=== PATIENT | female | born 1930 | race Caucasian/White ===

== ENCOUNTER 2016-10-26 04:26 | Day surgery (SDCO) | payer OTHER ==
[~2016-10-26 04:26] MED LIST: ASPIRIN CHEWABL81 MG PO; CALCIUM CITRAT1 EAC8 PO; CETIRIZINE HCL10 MG PO; FEOSOL325 MG PO; LAXATIVE OF CHOICE; MIRALAX17 GM PO; OCUVITE SOFTGE1 EACH PO; PERCOCET 5/3251 TAB PO; PRILOSEC20 MG PO; STOOL SOFTENER PO; SYMBICORT 80-10.2 GM INH; SYNTHROID50 MCG PO; VITAMIN D31000 UNI1 PO; [UNRECOGNIZED DRUG - OTHER]
[2016-10-26 05:51] LABS: BASOPHIL 0.4 % (0-2); EOSINOPHIL 1.5 % (0-7); HCT 40.3 % (37.0-47.0); HGB 13.5 g/dl (12.5-16.0); LYMPHOCYTE 15.7 % (15-48); MCHC 33.5 g/dL (32.0-36.0); MCV 92.6 fL (78.0-100.0); MONOCYTE 11.4 % (0-12); MPV 11.3 fL (6.0-9.5); PLT 273 K/uL (150-400); RBC 4.35 M/uL (4.20-5.40); RDW 14.4 % (11.5-14.0); WBC 11.6 K/uL (4.0-10.5)
[2016-10-26 06:04] LABS: LACTIC ACID 1.1 mmol/L (0.5-2.2)
[2016-10-26 06:07] LABS: ALBUMIN 3.2 g/dL (3.4-4.8); BILIRUBIN - TOTAL 0.3 mg/dL (0.1-1.0); CREATININE 0.9 mg/dL (0.5-1.0); GLOBULIN (CALCULATION) 3.1 g/dL (2.2-4.2); POTASSIUM 3.8 mmol/L (3.5-5.1); TOTAL PROTEIN 6.3 g/dL (6.4-8.3)
[2016-10-26 06:13] LABS: BILIRUBIN NEGATIVE (NEGATIVE); BLOOD NEGATIVE Ery/uL (NEGATIVE); CLARITY CLEAR (CLEAR); COLOR YELLOW (YELLOW); GLUCOSE (U) NORMAL (NORMAL); KETONE (U) NEGATIVE (NEGATIVE); LEUKOCYTES TRACE Leu/uL (NEGATIVE); NITRITE NEGATIVE (NEGATIVE); PROTEIN TRACE (LOW) mg/dL (NEGATIVE); SPECIFIC GRAVITY 1.015 (1.001-1.030); UROBILINOGEN 0.2 mg/dL (0.2-1.0); pH 6.5 (5.0-9.0)
[2016-10-27 04:59] LABS: HCT 36.3 % (37.0-47.0); HGB 11.9 g/dl (12.5-16.0); MCH 30.3 pg (25.0-31.0); MCHC 32.8 g/dL (32.0-36.0); MCV 92.4 fL (78.0-100.0); MPV 11.3 fL (6.0-9.5); RBC 3.93 M/uL (4.20-5.40); RDW 14.4 % (11.5-14.0); WBC 7.7 K/uL (4.0-10.5)
[2016-10-27 05:25] LABS: CREATININE 0.9 mg/dL (0.5-1.0); POTASSIUM 4.1 mmol/L (3.5-5.1)
[2016-10-27 19:58] LABS: MAGNESIUM 2.16 mg/dL (1.40-2.10); POTASSIUM 4.7 mmol/L (3.5-5.1)
[2016-10-28 04:01] LABS: HCT 36.3 % (37.0-47.0); HGB 12.1 g/dl (12.5-16.0); MCH 30.6 pg (25.0-31.0); MCHC 33.3 g/dL (32.0-36.0); MCV 91.9 fL (78.0-100.0); MPV 11.2 fL (6.0-9.5); RBC 3.95 M/uL (4.20-5.40); RDW 14.6 % (11.5-14.0); WBC 8.7 K/uL (4.0-10.5)
[2016-10-28 04:23] LABS: CREATININE 1.1 mg/dL (0.5-1.0); POTASSIUM 4.5 mmol/L (3.5-5.1)
[2016-10-28] MEDS ORDERED: PREDNISONE 10MG10 MG PO (10:58)
[2016-10-28] MEDS ORDERED: LEVAQUIN750 MG PO (11:00)
[2016-10-28] MEDS ORDERED: VENTOLIN HFA IN18 GM INH (11:01)
[2016-10-28] MEDS ORDERED: GUAIFENESIN200 MG PO (11:02)
== END 2016-10-28 12:28 | disposition home health service (06) ==
LOC: FER 04:26 → FMS 07:50
PROVIDERS: Emergency Medicine Emergency Medical Services; ADMIT Internal Medicine
DX: J44.1 Chronic obstructive pulmonary disease with (acute) exacerbation (principal); I10 Essential (primary) hypertension; E03.9 Hypothyroidism, unspecified; M19.90 Unspecified osteoarthritis, unspecified site; K21.9 Gastro-esophageal reflux disease without esophagitis; Z90.49 Acquired absence of other specified parts of digestive tract; Z87.891 Personal history of nicotine dependence; Z79.2 Long term (current) use of antibiotics; Z79.82 Long term (current) use of aspirin; Z79.899 Other long term (current) drug therapy; Z98.890 Other specified postprocedural states
CPT/HCPCS: 36415; 36600; 71010; 80048; 80053; 81001; 82803; 82962; 83605; 83735; 84132; 84145; 84484; 85025; 87040; 87070; 87088; 87205; 93005; 94640; C9113; G0378; J0456; J1644; J1956; J2930